=== PATIENT | male | born 1990 | race Two or more races ===

== ENCOUNTER 2017-08-09 23:44 | Emergency (ER) | payer MEDICAID ==
[~2017-08-09] VITALS: Ht 182.9 cm; Wt 104.3 kg
[2017-08-10 01:54] VITALS: BP 133/76
[2017-08-10] MEDS ORDERED: BACITRACIN TOP OINT 1 UD PKG TOP ONE (02:48)
== END 2017-08-10 02:45 | disposition home or self-care (01) ==
LOC: EDBD 23:48 → ER 23:48
DX: S61.101A Unspecified open wound of right thumb with damage to nail, initial encounter (principal); W23.0XXA Caught, crushed, jammed, or pinched between moving objects, initial encounter; Y93.89 Activity, other specified; Y92.89 Other specified places as the place of occurrence of the external cause; Y99.8 Other external cause status
CPT/HCPCS: 11730

== ENCOUNTER 2019-01-03 15:41 | Emergency (ER) | payer SELFPAY ==
[~2019-01-03] VITALS: Ht 182.9 cm; Wt 97.5 kg
[2019-01-03 16:58] VITALS: BP 123/42
[2019-01-03] MEDS ORDERED: LIDOCAINE 1% (LOCAL ANESTH.) PF 5ml SDV ID ONE (17:15)
[2019-01-03] MEDS ORDERED: BACITRACIN TOP OINT 1 UD PKG TOP ONE (17:15)
[2019-01-03] MEDS ORDERED: LIDOCAINE 1% HCL (LOCAL ANESTH.) INJ 20ML MDV ONE (17:22)
[2019-01-03] MEDS ORDERED: TETANUS-DIPTH-ACEL PERTUSSIS 0.5ML SYRG IM ONE (17:30)
== END 2019-01-03 17:51 | disposition left against medical advice (07) ==
LOC: ER 15:41
DX: S61.412A Laceration without foreign body of left hand, initial encounter (principal); Z53.29 Procedure and treatment not carried out because of patient's decision for other reasons; W26.9XXA Contact with unspecified sharp object(s), initial encounter; Y93.89 Activity, other specified; Y99.8 Other external cause status; Y92.89 Other specified places as the place of occurrence of the external cause
CPT/HCPCS: 99283; J2001

== ENCOUNTER 2020-08-24 20:31 | Emergency (ER) | payer MEDICAID, OTHER ==
[~2020-08-24] VITALS: Ht 182.9 cm; Wt 102.1 kg
[2020-08-24] MEDS ORDERED: KETOROLAC TROMETH 60MG/2ML VIAL IM ONE (23:00)
[2020-08-25 00:30] VITALS: BP 152/59
== END 2020-08-25 00:55 | disposition home or self-care (01) ==
LOC: ER 20:31
DX: L03.115 Cellulitis of right lower limb (principal); S80.01XA Contusion of right knee, initial encounter; R25.2 Cramp and spasm; X58.XXXA Exposure to other specified factors, initial encounter; Y93.89 Activity, other specified; Y92.89 Other specified places as the place of occurrence of the external cause; Y99.8 Other external cause status
CPT/HCPCS: 73700; 96372; 99284; J1885